=== PATIENT | male | born 1960 | race Caucasian/White ===

== ENCOUNTER 2020-08-21 07:17 | Emergency (ER) | payer OTHER, SELFPAY ==
[2020-08-21 07:53] VITALS: BP 151/97; PULSE 125; RESP 19; TEMP 36.6; O2SAT 97; BMI 29.5
[2020-08-21 08:03] VITALS: BP 151/97; PULSE 125; RESP 19; TEMP 36.6; O2SAT 97
--- NOTE | 2020-08-21 08:11 | ECG_ITS ---
Test Reason : MEDICAL CLEARANCE Blood Pressure : / mmHG Vent. Rate : 102 BPM Atrial Rate : 102 BPM P-R Int : 194 ms QRS Dur : 100 ms QT Int : 368 ms P-R-T Axes : 040 -70 052 degrees QTc Int : 479 ms Sinus tachycardia Intra-ventricular conduction delay Left anterior fascicular block Abnormal ECG When compared with ECG of 19-APR-2020 13:11, No significant change was found Referred By: Mayra Ferreira Electronically Signed By:TAYLER GARCIA MD
--- NOTE | 2020-08-21 08:27 | ED.PSYCH ---
HPI - Psych General Chief Complaint: Psychiatric Symptoms Stated Complaint: SI Time Seen by Provider: 08/21/20 08:11 Source: patient Mode of arrival: ambulatory Limitations: no limitations History of Present Illness HPI Narrative: 60-year-old male with a past medical history of depression here with feeling depressed for the last few weeks and feeling suicidal with no plan. The patient tells me he is followed by Dr. Gonzalez and has gone through ECT treatment in the past. He tells me he has both Dr. Gonzalez 2 weeks ago and his dose of acomprosate was increased. he feels like this is not helping. He does feel he may need inpatient care. He denies HI. He is feeling suicidal with no plan. He has a history of alcohol abuse and had been sober for about 8 months until yesterday when he started drinking. The patient tells me he had about 17 beers. Denies additional substance use. No physical complaints. MD complaint: suicidal ideation and feels depressed Onset (ago): week(s) Duration: constant History of same: Yes Relieving factors: none Exacerbating factors: none Context: recent alcohol abuse Associated psychiatric symptoms: depression and suicidal ideation Associated symptoms: denies other symptoms Treatments prior to arrival: none If self harm: admits thoughts of self harm Related Data Home Medications Medication Instructions Recorded Confirmed acamprosate 2 tab PO TID 08/21/20 08/21/20 aripiprazole 1 tab PO BEDTIME 08/21/20 08/21/20 bupropion HCl 3 tab PO DAILY 08/21/20 08/21/20 buspirone 1 tab PO DAILY 08/21/20 08/21/20 buspirone 2 tab PO BEDTIME 08/21/20 08/21/20 lithium carbonate 2 cap PO BID 08/21/20 08/21/20 mirtazapine 1 tab PO BEDTIME 08/21/20 08/21/20 trazodone 150 mg PO BEDTIME 08/21/20 08/21/20 Allergies Allergy/AdvReac Type Severity Reaction Status Date / Time Penicillins [PCN] Allergy Intermediate RASH/FEVER Unverified 07/12/20 14:55 penicillin V Allergy Unknown Verified 02/02/19 00:00 Review of Systems Review of Systems: Yes all other systems are reviewed and are negative Constitutional: Constitutional: Reports no additional constitutional complaints, Denies body ache(s), Denies chills, Denies fever(s), Denies headache(s) and Denies weakness Eyes: Eyes: Reports no additional eye complaints and Denies change in vision ENT: Reports system reviewed and no additional complaints, except as documented, Denies dizziness, Denies headache(s), Denies nasal congestion, Denies nasal discharge and Denies neck pain Cardiovascular: Cardiovascular: Reports no additional cardiovascular complaints, Denies chest pain, Denies leg edema and Denies dyspnea Respiratory: Respiratory: Reports no additional respiratory complaints, Denies cough and Denies dyspnea Gastrointestinal: Gastrointestinal: Reports no additional gastrointestinal complaints, Denies abdominal pain, Denies diarrhea, Denies nausea and Denies vomiting Genitourinary: Genitourinary: Denies urinary incontinence Musculoskeletal: Musculoskeletal: Reports no additional musculoskeletal complaints, Denies back pain, Denies arthralgias, Denies joint swelling, Denies neck pain, Denies numbness and Denies tingling Integumentary/Breasts: Skin/Breast: Reports system reviewed and no additional complaints, except as docu and Denies rash Neurologic: Reports system reviewed and no additional complaints, except as documented, Denies Abnormal speech present, Denies dizziness, Denies headache(s), Denies numbness, Denies tingling and Denies weakness Psychiatric: Psychiatric: Denies anxiety, Reports depression, Denies homicidal ideation and Reports suicidal ideation [facility] Past Medical History Attestation statement: The following information was validated with the patient. Source: old records reviewed and nursing notes reviewed Medical History Depression No known health problems Social History Social History Alcohol intake: current Alcohol intake frequency: 3 or more drinks per day Alcohol type: beer Smoking Status: Former smoker Smoked in Last 30 Days: No Use of substances other than those prescribed or required for medical reasons: No Advance Directives: Yes Advance Directives Information Provided: No Advance Directives on File: No Physical Exam Vital Signs: Vital Signs: Vital Signs Temp Pulse Resp BP Pulse Ox 08/21/20 08:58 98.1 F 105 H 17 142/98 H 08/21/20 08:03 97.8 F 125 H 19 151/97 H 97 08/21/20 07:53 97.8 F 125 H 19 151/97 H 97 Body Mass Index 29.5 Const: General: cooperative, healthy appearing, comfortable and no acute distress Orientation/consciousness: patient oriented x3 Limitations: no limitations HENMT: Head: Yes normal to inspection Ears: hearing grossly normal bilaterally General nose exam: Normal external nose present Face and sinus: Yes normal facial exam Mouth: Normal oral and palatal mucosa present Throat: Yes posterior oropharynx normal Eyes: General: appearance normal, both eyes and all related structures Pupils: Equal, round and reactive pupils present Neck: Neck: Yes normal visual inspection Chest: Chest palpation & inspection: normal inspection of the chest Resp: Effort & Inspection: normal respiratory effort Auscultation: clear to auscultation bilaterally Cardio: Rate: regular rate Rhythm: regular rhythm Peripheral pulses: Peripheral pulses 2+ throughout GI: Inspection: Yes normal to inspection Palpation (GI): Soft to palpation and nontender Auscultation: normal bowel sounds Back/Spine/Pelvis: Thoracic/Lumbar Spine: thoracic and lumbar spine normal to inspection Skin: General skin exam: no rashes or lesions noted Neuro: General: patient oriented x3, no focal motor deficits and normal sensation to monofilament Cranial nerves: Yes Equal, round and reactive pupils present Cognition (Neuro): normal cognition Speech: No Abnormal speech present Gait exam (Neuro): Normal gait present Motor exam (neuro): 5/5 motor strength present throughout Extrem: General: Yes normal to inspection Course Course Course Narrative: 60-year-old male here with depression and vague suicidal thoughts. No plan. No concern for acute ingestion or trauma. No physical complaints. Will check labs, drug screen, [facility] evaluation 1345-Seen by crisis and plan for re-eval in the morning, discussion with dr gonzalez. 1630-Update from [facility]. Plan for respite. Patient going from the ED to home to get clothes and medications then to respuite. Patient is agreeable to this planof care. MDM - Psych Restraints Face to Face Assessment: Face to Face Assessment: Current Situation: After assessment of the patient, a review of the pertinent medical record and a discussion with nursing staff, I feel the patient requires a restrain intervention. Reaction To: [] Medical Condition: [] Behavioral State: [] Continued Need: [] Medical Records Attestation: I reviewed the patient's medical records. Lab Data Attestation: I reviewed the patient's lab results. Result diagrams: 08/21/20 08:44 08/21/20 08:44 Labs: Lab Results 08/21/20 08/21/20 08/21/20 Range/Units 08:44 08:44 08:44 WBC 10.3 (4.8-10.8) X10*3/uL RBC 5.40 (4.60-5.80) X10*6/uL Hgb 16.6 (14.0-18.0) g/dl Hct 50.2 (42-52) % MCV 93.0 (80-98) fL MCH 30.7 (27.0-33.0) pg MCHC 33.1 (31.0-36.0) g/dl RDW 12.9 (11.0-16.0) % Plt Count 253 (160-400) X10*3/uL MPV 11.7 (9.4-12.4) fL Immature Gran % (Auto) 0.4 (0.0-0.4) % Neut % (Auto) 78.5 H (45-73) % Lymph % (Auto) 13.2 L (20-40) % Bradley % (Auto) 6.9 (2-11) % Eos % (Auto) 0.6 (0-4) % Baso % (Auto) 0.4 (0-2) % Lymph # (Auto) 1.4 (1.2-4.9) X10*3/uL Bradley # (Auto) 0.7 (0.1-1.2) X10*3/uL Eos # (Auto) 0.1 (0.0-0.4) X10*3/uL Baso # (Auto) 0.0 (0.0-0.2) X10*3/uL Abs Immat Gran (auto) 0.04 H (0.00-0.03) X10*3/uL Absolute Neuts (auto) 8.1 (2.0-8.3) X10*3/uL Absolute Nucleated RBC 0.000 (0.0-0.012) X10*3/uL Nucleated RBC % (auto) 0.0 (0.0-0.2) /100WBC Sodium 138 (135-145) mmol/L Potassium 4.6 (3.3-5.1) mmol/l Chloride 102 (96-108) mmol/L Carbon Dioxide 25 (22-29) mmol/L Anion Gap 16 (12-20) BUN 5 L (9-16) mg/dL Creatinine 1.15 (0.5-1.4) mg/dL Estim Creat Clear Calc 86.8 Estimated GFR > 60 Random Glucose 104 (60-115) mg/dL Calcium 9.4 (8.4-10.2) mg/dL Total Bilirubin 0.7 (0.0-1.0) mg/dL Direct Bilirubin 0.3 (0.0-0.5) mg/dL AST 12 (5-37) U/L ALT 11 (0-40) U/L Alkaline Phosphatase 88 (39-117) U/L Total Protein 7.5 (6.5-8.0) g/dL Albumin 4.6 (3.5-5.0) g/dL Urine Opiates Screen (Not Detect) Ur Barbiturates Screen (Not Detect) Ur Phencyclidine Scrn (Not Detect) Ur Amphetamines Screen (Not Detect) U Benzodiazepines Scrn (Not Detect) Urine Cocaine Screen (Not Detect) U Marijuana (THC) Screen (Not Detect) Ethyl Alcohol < 10 mg/dL Coronavirus (PCR) (Negative) 08/21/20 08/21/20 Range/Units 09:26 15:25 WBC (4.8-10.8) X10*3/uL RBC (4.60-5.80) X10*6/uL Hgb (14.0-18.0) g/dl Hct (42-52) % MCV (80-98) fL MCH (27.0-33.0) pg MCHC (31.0-36.0) g/dl RDW (11.0-16.0) % Plt Count (160-400) X10*3/uL MPV (9.4-12.4) fL Immature Gran % (Auto) (0.0-0.4) % Neut % (Auto) (45-73) % Lymph % (Auto) (20-40) % Bradley % (Auto) (2-11) % Eos % (Auto) (0-4) % Baso % (Auto) (0-2) % Lymph # (Auto) (1.2-4.9) X10*3/uL Bradley # (Auto) (0.1-1.2) X10*3/uL Eos # (Auto) (0.0-0.4) X10*3/uL Baso # (Auto) (0.0-0.2) X10*3/uL Abs Immat Gran (auto) (0.00-0.03) X10*3/uL Absolute Neuts (auto) (2.0-8.3) X10*3/uL Absolute Nucleated RBC (0.0-0.012) X10*3/uL Nucleated RBC % (auto) (0.0-0.2) /100WBC Sodium (135-145) mmol/L Potassium (3.3-5.1) mmol/l Chloride (96-108) mmol/L Carbon Dioxide (22-29) mmol/L Anion Gap (12-20) BUN (9-16) mg/dL Creatinine (0.5-1.4) mg/dL Estim Creat Clear Calc Estimated GFR Random Glucose (60-115) mg/dL Calcium (8.4-10.2) mg/dL Total Bilirubin (0.0-1.0) mg/dL Direct Bilirubin (0.0-0.5) mg/dL AST (5-37) U/L ALT (0-40) U/L Alkaline Phosphatase (39-117) U/L Total Protein (6.5-8.0) g/dL Albumin (3.5-5.0) g/dL Urine Opiates Screen Not Detected (Not Detect) Ur Barbiturates Screen Not Detected (Not Detect) Ur Phencyclidine Scrn Not Detected (Not Detect) Ur Amphetamines Screen Not Detected (Not Detect) U Benzodiazepines Scrn Not Detected (Not Detect) Urine Cocaine Screen Not Detected (Not Detect) U Marijuana (THC) Screen Not Detected (Not Detect) Ethyl Alcohol mg/dL Coronavirus (PCR) NEGATIVE (Negative) ECG Data Attestation: I personally reviewed and interpreted this ECG as follows: ECG interpretation date: 08/21/20 Pacemaker model: ST at rate of 102. Normal MO, Normal QRS, Normal ST segment Discharge Plan Discharge Clinical Impression: Depression Patient Disposition: Home, Self-Care Instructions: Depression (ED) Prescriptions: No Action aripiprazole 10 mg tablet 1 tab PO BEDTIME RF: 0 acamprosate 333 mg tablet,delayed release (DR/EC) 2 tab PO TID RF: 0 bupropion HCl 150 mg tablet extended release 24 hr 3 tab PO DAILY RF: 0 buspirone 15 mg tablet 1 tab PO DAILY RF: 0 buspirone 15 mg tablet 2 tab PO BEDTIME RF: 0 lithium carbonate 300 mg capsule 2 cap PO BID RF: 0 mirtazapine 45 mg tablet 1 tab PO BEDTIME RF: 0 trazodone 100 mg Tablet 150 mg PO BEDTIME RF: 0
[2020-08-21 08:51] LABS: MANUAL DIFF FLAG NO
[2020-08-21 08:53] LABS: Basophils Percent Auto 0.4 % (0-2); Eosinophils Absolute Auto 0.1 X10*3/uL (0.0-0.4); Eosinophils Percent Auto 0.6 % (0-4); Hematocrit 50.2 % (42-52); Hemoglobin 16.6 g/dl (14.0-18.0); Imm Gran Abs Auto 0.04 X10*3/uL (0.00-0.03); Imm Gran Pct Auto 0.4 % (0.0-0.4); Lymphocytes Absolute Auto 1.4 X10*3/uL (1.2-4.9); Lymphocytes Percent Auto 13.2 % (20-40); Mean Corpuscular HGB Conc 33.1 g/dl (31.0-36.0); Mean Corpuscular Hemoglobin 30.7 pg (27.0-33.0); Mean Platelet Volume 11.7 fL (9.4-12.4); Monocytes Absolute Auto 0.7 X10*3/uL (0.1-1.2); Monocytes Percent Auto 6.9 % (2-11); Neutrophils Absolute Auto 8.1 X10*3/uL (2.0-8.3); Neutrophils Percent Auto 78.5 % (45-73); Platelet Count 253 X10*3/uL (160-400); Red Cell Distribution Width 12.9 % (11.0-16.0); White Blood Count 10.3 X10*3/uL (4.8-10.8)
[2020-08-21 08:58] VITALS: BP 142/98; PULSE 105; RESP 17; TEMP 36.7
[2020-08-21 09:17] LABS: Alanine Aminotransferase 11 U/L (0-40); Albumin Level 4.6 g/dL (3.5-5.0); Alkaline Phosphatase 88 U/L (39-117); Anion Gap 16 (12-20); Aspartate Amino Transferase 12 U/L (5-37); Bilirubin Direct 0.3 mg/dL (0.0-0.5); Bilirubin Total 0.7 mg/dL (0.0-1.0); Blood Urea Nitrogen 5 mg/dL (9-16); Calcium 9.4 mg/dL (8.4-10.2); Carbon Dioxide 25 mmol/L (22-29); Chloride 102 mmol/L (96-108); Creatinine Clr Calc Pharmacy 86.8; Estimated Glomerular Filt Rate > 60; Glucose Random 104 mg/dL (60-115); Potassium 4.6 mmol/l (3.3-5.1); Sodium 138 mmol/L (135-145); Total Protein 7.5 g/dL (6.5-8.0)
[2020-08-21 09:18] LABS: Ethanol < 10 mg/dL
--- NOTE | 2020-08-21 10:31 | PC.NURSE ---
JOCELYNN faxed and called, confirmed with Di.
[2020-08-21 10:39] LABS: Amphetamine Screen Urine Not Detected (Not Detect); Barbiturates, Urine Not Detected (Not Detect); Benzodiazepines Screen Urine Not Detected (Not Detect); Cannabinoid Screen Urine Not Detected (Not Detect); Cocaine Screen Urine Not Detected (Not Detect); Opiate Screen Urine Not Detected (Not Detect); Phencyclidine Screen Urine Not Detected (Not Detect)
--- NOTE | 2020-08-21 11:19 | MHC.CARE ---
CARE team called [facility] to inquire about the status of sending an solutions developer. T/w spoke w pod this am about this and the pod was told by N (Di) that someone is on the way and then again in a follow up call made by pod at 1030 when someone is available they will come . T/w called at 1115 and spoke monique Sevilla who immediately placed t/w on hold to speak w o and m supervisor and stated we sent someone a while ago and her name is Gia . T/w called pod w this info as the [facility] employee was walking in. She will see this pt as well as the MSU on the other ED pt.
[2020-08-21 16:26] LABS: SARS COV2 PCR INHOUSE NEGATIVE (Negative)
[2020-08-21 16:36] VITALS: BP 140/85; PULSE 96; RESP 20; TEMP 36.9; O2SAT 96
== END 2020-08-21 16:45 | disposition home or self-care (01) ==
PROVIDERS: Nurse Practitioner Family; Emergency Provider Emergency Medicine
DX: F33.1 Major depressive disorder, recurrent, moderate (principal); R45.851 Suicidal ideations; Z87.891 Personal history of nicotine dependence; Z20.828 Contact with and (suspected) exposure to other viral communicable diseases; Z79.899 Other long term (current) drug therapy
CPT/HCPCS: 36415; 80048; 80076; 80307; 80320; 85025; 87635; 93005; 99284

== ENCOUNTER 2020-11-30 13:45 | Outpatient (RCR) | payer OTHER, SELFPAY ==
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
--- NOTE | 2020-09-24 23:06 | P.PNPS_ITS ---
TMS Daily Progress Note Daily TMS Progress Note Date of Service: 09/25/20 Week #: 1 Treatment #(11-24): 1 PHQ-9 Pre-Treatment (11-21): 22 PHQ-9 Most Recent (11-21): 22 Reviewed: TMS Tech Note Reviewed Verification: I have reviewed the TMS Mgmt Specialist Note and agree with the contents. The patient remains a candidate to continue TMS treatment per pro tocol.
--- NOTE | 2020-09-25 23:38 | P.PNPS_ITS ---
TMS Daily Progress Note Daily TMS Progress Note Date of Service: 09/25/20 Week #: 1 Treatment #(11-24): 2 PHQ-9 Pre-Treatment (11-21): 22 PHQ-9 Most Recent (11-21): 22 Reviewed: TMS Tech Note Reviewed Verification: I have reviewed the TMS Grinder Set Up Operator Internal Note and agree with the contents. The patient remains a candidate to continue TMS treatment per pro tocol.
--- NOTE | 2020-09-26 08:14 | P.PNPS_ITS ---
TMS Daily Progress Note Daily TMS Progress Note Date of Service: 09/26/20 Week #: 1 Treatment #(11-24): 3 PHQ-9 Pre-Treatment (-): 22 PHQ-9 Most Recent (11-21): 22 LATOSHA-7 Pre-Treatment (0-21): 9 LATOSHA-7 Most Recent (0-21): 9 CGI-I Most Recent: 4 = No Change Reviewed: TMS Tech Note Reviewed Verification: I have reviewed the TMS Animal Anatomy Teacher Note and agree with the contents. The patient remains a candidate to continue TMS treatment per protocol.
--- NOTE | 2020-09-27 16:56 | HO.TMSDAILY2 ---
TMS Daily Progress Note Daily TMS Progress Note Date of Service: 09/27/20 Week #: 1 Treatment #(11-24): 4 PHQ-9 Pre-Treatment (-): 22 PHQ-9 Most Recent (11-21): 22 LATOSHA-7 Pre-Treatment (0-21): 9 LATOSHA-7 Most Recent (0-21): 9 CGI-I Most Recent: 4 = No Change Reviewed: TMS Tech Note Reviewed Verification: I have reviewed the TMS Chief Executive Officer Note and agree with the contents. The patient remains a candidate to continue TMS treatment per protocol.
--- NOTE | 2020-09-28 16:36 | HO.TMSDAILY2 ---
TMS Daily Progress Note Daily TMS Progress Note Date of Service: 09/29/20 Week #: 1 Treatment #(11-24): 5 PHQ-9 Pre-Treatment (-): 22 PHQ-9 Most Recent (11-21): 22 LATOSHA-7 Pre-Treatment (0-21): 9 LATOSHA-7 Most Recent (0-21): 9 CGI-I Most Recent: 4 = No Change Q-LES-Q-SF Most Recent: 45 Reviewed: TMS Tech Note Reviewed Verification: I have reviewed the TMS Manufacturing Area Manager Note and agree with the contents. The patient remains a candidate to continue TMS treatment per protocol.
--- NOTE | 2020-10-01 18:49 | P.PNPS_ITS ---
TMS Daily Progress Note Daily TMS Progress Note Date of Service: 10/01/20 Week #: 2 Treatment #(-30): 6 PHQ-9 Pre-Treatment (-): 22 PHQ-9 Most Recent (11-21): 20 LATOSHA-7 Pre-Treatment (0-21): 9 LATOSHA-7 Most Recent (0-21): 14 CGI-I Most Recent: 4 = No Change Q-LES-Q-SF Most Recent: 45 Reviewed: TMS Tech Note Reviewed Verification: I have reviewed the TMS Sausage Machine Operator Note and agree with the contents. The patient remains a candidate to continue TMS treatment per protocol.
--- NOTE | 2020-10-02 20:49 | P.PNPS_ITS ---
TMS Daily Progress Note Daily TMS Progress Note Date of Service: 10/02/20 Week #: 2 Treatment #(-30): 7 PHQ-9 Pre-Treatment (-): 22 PHQ-9 Most Recent (11-21): 20 LATOSHA-7 Pre-Treatment (0-21): 9 LATOSHA-7 Most Recent (0-21): 14 CGI-I Most Recent: 4 = No Change Q-LES-Q-SF Most Recent: 45 Reviewed: TMS Tech Note Reviewed Verification: I have reviewed the TMS Powerhouse Electrician Apprentice Note and agree with the contents. The patient remains a candidate to continue TMS treatment per protocol.
--- NOTE | 2020-10-03 20:59 | P.PNPS_ITS ---
TMS Daily Progress Note Daily TMS Progress Note Date of Service: 10/03/20 Week #: 2 Treatment #(-30): 8 PHQ-9 Pre-Treatment (-): 22 PHQ-9 Most Recent (11-21): 20 LATOSHA-7 Pre-Treatment (0-21): 9 LATOSHA-7 Most Recent (0-21): 14 CGI-I Most Recent: 4 = No Change Q-LES-Q-SF Most Recent: 45 Reviewed: TMS Tech Note Reviewed Verification: I have reviewed the TMS Mainframe Applications Developer Note and agree with the contents. The patient remains a candidate to continue TMS treatment per protocol.
--- NOTE | 2020-10-05 10:54 | P.PNPS_ITS ---
TMS Daily Progress Note Daily TMS Progress Note Date of Service: 10/04/20 Week #: 2 Treatment #(-30): 9 PHQ-9 Pre-Treatment (-): 22 PHQ-9 Most Recent (11-21): 20 LATOSHA-7 Pre-Treatment (0-21): 9 LATOSHA-7 Most Recent (0-21): 14 CGI-I Most Recent: 4 = No Change Q-LES-Q-SF Most Recent: 45 Reviewed: TMS Tech Note Reviewed (Late entry for 10/04/20) Verification: I have reviewed the TMS Mechanical Development Engineer Note and agree with the contents. The patient remains a candidate to continue TMS treatment per protocol.
--- NOTE | 2020-10-05 16:16 | HO.TMSDAILY2 ---
TMS Daily Progress Note Daily TMS Progress Note Date of Service: 10/05/20 Week #: 2 Treatment #(-): 10 PHQ-9 Pre-Treatment (-): 22 PHQ-9 Most Recent (11-21): 20 LATOSHA-7 Pre-Treatment (0-21): 9 LATOSHA-7 Most Recent (0-21): 14 CGI-I Most Recent: 4 = No Change Q-LES-Q-SF Most Recent: 45 Reviewed: TMS Tech Note Reviewed Verification: I have reviewed the TMS Drama Therapist Note and agree with the contents. The patient remains a candidate to continue TMS treatment per protocol.
--- NOTE | 2020-10-08 15:15 | HO.TMSDAILY2 ---
TMS Daily Progress Note Daily TMS Progress Note Date of Service: 10/08/20 Week #: 3 Treatment #(-30): 11 PHQ-9 Pre-Treatment (1-): 22 PHQ-9 Most Recent (11-21): 19 LATOSHA-7 Pre-Treatment (0-21): 9 LATOSHA-7 Most Recent (0-21): 13 CGI-I Most Recent: 4 = No Change Q-LES-Q-SF Most Recent: 45 Reviewed: TMS Tech Note Reviewed Verification: I have reviewed the TMS Polysomnography Technologist Note and agree with the contents. The patient remains a candidate to continue TMS treatment per protocol.
--- NOTE | 2020-10-09 15:41 | P.PNPS_ITS ---
TMS Daily Progress Note Daily TMS Progress Note Date of Service: 10/09/20 Week #: 3 Treatment #(-30): 12 PHQ-9 Pre-Treatment (1-): 22 PHQ-9 Most Recent (11-21): 19 LATOSHA-7 Pre-Treatment (0-21): 9 LATOSHA-7 Most Recent (0-21): 13 CGI-I Most Recent: 4 = No Change Q-LES-Q-SF Most Recent: 45 Reviewed: TMS Tech Note Reviewed Verification: I have reviewed the TMS Hotel Guest Service Agent Note and agree with the contents. The patient remains a candidate to continue TMS treatment per protocol.
--- NOTE | 2020-10-10 15:43 | HO.TMSDAILY2 ---
TMS Daily Progress Note Daily TMS Progress Note Date of Service: 10/10/20 Week #: 3 Treatment #(-30): 13 PHQ-9 Pre-Treatment (1-): 22 PHQ-9 Most Recent (11-21): 19 LATOSHA-7 Pre-Treatment (0-21): 9 LATOSHA-7 Most Recent (0-21): 13 CGI-I Most Recent: 4 = No Change Q-LES-Q-SF Most Recent: 45 Reviewed: TMS Tech Note Reviewed Verification: I have reviewed the TMS Senior Market Research Analyst Note and agree with the contents. The patient remains a candidate to continue TMS treatment per protocol.
--- NOTE | 2020-10-12 18:20 | P.PNPS_ITS ---
TMS Daily Progress Note Daily TMS Progress Note Date of Service: 10/21/20 Week #: 3 Treatment #(-): 14 PHQ-9 Pre-Treatment (-): 22 PHQ-9 Most Recent (11-21): 19 LATOSHA-7 Pre-Treatment (0-21): 9 LATOSHA-7 Most Recent (0-21): 13 CGI-I Most Recent: 4 = No Change Q-LES-Q-SF Most Recent: 45 Reviewed: TMS Tech Note Reviewed Verification: I have reviewed the TMS Gum Rolling Machine Tender Note and agree with the contents. The patient remains a candidate to continue TMS treatment per protocol.
--- NOTE | 2020-10-15 17:52 | HO.TMSDAILY2 ---
TMS Daily Progress Note Daily TMS Progress Note Date of Service: 10/15/20 Treatment #(11-24): 13 PHQ-9 Pre-Treatment (-): 22 PHQ-9 Most Recent (11-21): 19 LATOSHA-7 Pre-Treatment (0-21): 9 LATOSHA-7 Most Recent (0-): 13 CGI-I Most Recent: 4 = No Change Q-LES-Q-SF Most Recent: 45 Verification: I have reviewed the TMS Salvage Laborer Note and agree with the contents. The patient remains a candidate to continue TMS treatment per protocol.
--- NOTE | 2020-10-18 17:58 | HO.TMSDAILY2 ---
TMS Daily Progress Note Daily TMS Progress Note Date of Service: 10/18/20 Week #: 4 Treatment #(11-24): 16 PHQ-9 Pre-Treatment (11-21): 22 PHQ-9 Most Recent (11-21): 20 CGI-I Most Recent: 4 = No Change Reviewed: TMS Tech Note Reviewed Verification: I have reviewed the TMS Mottle Lay Up Operator Note and agree with the contents. The patient remains a candidate to continue TMS treatment per protocol.
--- NOTE | 2020-10-20 00:10 | HO.PSYCHPN ---
Subjective Subjective Date of Service: 10/20/20 Reason For Visit: depression Medications Allergies Allergies Allergy/AdvReac Type Severity Reaction Status Date / Time Penicillins [PCN] Allergy Intermediate RASH/FEVER Unverified 07/12/20 14:55 penicillin V Allergy Unknown Verified 02/02/19 00:00 Assessment & Plan Greater than 50% of the session was spent on counseling and/or coordination of care
--- NOTE | 2020-10-22 23:59 | HO.TMSDAILY2 ---
TMS Daily Progress Note Daily TMS Progress Note Date of Service: 10/22/20 Treatment #(11-24): 16 PHQ-9 Pre-Treatment (11-21): 22 PHQ-9 Most Recent (11-21): 20 CGI-I Most Recent: 4 = No Change Verification: I have reviewed the TMS Side Stitcher Note and agree with the contents. The patient remains a candidate to continue TMS treatment per protocol.
--- NOTE | 2020-10-23 23:11 | HO.TMSDAILY2 ---
TMS Daily Progress Note Daily TMS Progress Note Date of Service: 10/23/20 Week #: 4 Treatment #(11-24): 18 PHQ-9 Pre-Treatment (11-21): 22 PHQ-9 Most Recent (11-21): 20 CGI-I Most Recent: 4 = No Change Reviewed: TMS Tech Note Reviewed Verification: I have reviewed the TMS Piano Builder Note and agree with the contents. The patient remains a candidate to continue TMS treatment per protocol.
--- NOTE | 2020-10-24 23:12 | HO.TMSDAILY2 ---
TMS Daily Progress Note Daily TMS Progress Note Date of Service: 10/25/20 Week #: 4 Treatment #(11-24): 19 PHQ-9 Pre-Treatment (11-21): 22 PHQ-9 Most Recent (11-21): 20 CGI-I Most Recent: 4 = No Change Reviewed: TMS Tech Note Reviewed Verification: I have reviewed the TMS Manometer Technician Note and agree with the contents. The patient remains a candidate to continue TMS treatment per protocol.
--- NOTE | 2020-10-25 23:53 | P.PNPS_ITS ---
TMS Daily Progress Note Daily TMS Progress Note Date of Service: 10/29/20 Week #: 4 Treatment #(11-24): 20 PHQ-9 Pre-Treatment (11-21): 22 PHQ-9 Most Recent (11-21): 20 CGI-I Most Recent: 4 = No Change Reviewed: TMS Tech Note Reviewed Verification: I have reviewed the TMS Communications Engineering Technician Note and agree with the contents. The patient remains a candidate to continue TMS treatment per protocol.
--- NOTE | 2020-10-29 23:51 | HO.TMSDAILY2 ---
TMS Daily Progress Note Daily TMS Progress Note Date of Service: 10/29/20 Week #: 5 Treatment #(11-24): 21 PHQ-9 Pre-Treatment (11-21): 22 PHQ-9 Most Recent (11-21): 20 CGI-I Most Recent: 4 = No Change Reviewed: TMS Tech Note Reviewed Verification: I have reviewed the TMS Manager Strategic Sourcing Note and agree with the contents. The patient remains a candidate to continue TMS treatment per protocol.
--- NOTE | 2020-10-30 23:03 | HO.TMSDAILY2 ---
TMS Daily Progress Note Daily TMS Progress Note Date of Service: 10/30/20 Week #: 5 Treatment #(11-24): 22 PHQ-9 Pre-Treatment (11-21): 22 PHQ-9 Most Recent (11-21): 20 CGI-I Most Recent: 4 = No Change Reviewed: TMS Tech Note Reviewed Verification: I have reviewed the TMS Waistline Joiner Overlock Note and agree with the contents. The patient remains a candidate to continue TMS treatment per protocol.
--- NOTE | 2020-10-31 23:27 | P.PNPS_ITS ---
TMS Daily Progress Note Daily TMS Progress Note Date of Service: 10/31/20 Week #: 5 Treatment #(11-24): 23 PHQ-9 Pre-Treatment (11-21): 22 PHQ-9 Most Recent (11-21): 20 CGI-I Most Recent: 4 = No Change Reviewed: TMS Tech Note Reviewed Verification: I have reviewed the TMS Caustic Plant Worker Note and agree with the contents. The patient remains a candidate to continue TMS treatment per protocol.
--- NOTE | 2020-11-01 17:26 | HO.TMSDAILY2 ---
TMS Daily Progress Note Daily TMS Progress Note Date of Service: 11/01/20 Week #: 5 Treatment #(11-24): 24 PHQ-9 Pre-Treatment (11-21): 22 PHQ-9 Most Recent (11-21): 20 CGI-I Most Recent: 4 = No Change Reviewed: TMS Tech Note Reviewed Verification: I have reviewed the TMS Cloth Grader Supervisor Note and agree with the contents. The patient remains a candidate to continue TMS treatment per protocol.
--- NOTE | 2020-11-02 09:39 | HO.TMSDAILY2 ---
TMS Daily Progress Note Daily TMS Progress Note Date of Service: 11/02/20 Week #: 5 Treatment #(11-24): 25 PHQ-9 Pre-Treatment (11-21): 22 PHQ-9 Most Recent (11-21): 20 CGI-I Most Recent: 4 = No Change Reviewed: TMS Tech Note Reviewed Verification: I have reviewed the TMS Marketing Database Consultant Note and agree with the contents. The patient remains a candidate to continue TMS treatment per protocol.
--- NOTE | 2020-11-05 08:10 | HO.TMSDAILY2 ---
TMS Daily Progress Note Daily TMS Progress Note Date of Service: 11/05/20 Week #: 6 Treatment #(11-24): 26 PHQ-9 Pre-Treatment (11-21): 22 PHQ-9 Most Recent (11-21): 20 CGI-I Most Recent: 4 = No Change Reviewed: TMS Tech Note Reviewed Verification: I have reviewed the TMS Reserve Operator Note and agree with the contents. The patient remains a candidate to continue TMS treatment per protocol.
--- NOTE | 2020-11-05 22:23 | HO.TMSDAILY2 ---
TMS Daily Progress Note Daily TMS Progress Note Date of Service: 11/05/20 Week #: 6 Treatment #(11-24): 26 PHQ-9 Pre-Treatment (11-21): 22 PHQ-9 Most Recent (11-21): 20 CGI-I Most Recent: 4 = No Change Reviewed: TMS Tech Note Reviewed Verification: I have reviewed the TMS Watch And Clock Maker And Repairer Note and agree with the contents. The patient remains a candidate to continue TMS treatment per protocol.
--- NOTE | 2020-11-06 23:00 | P.PNPS_ITS ---
TMS Daily Progress Note Daily TMS Progress Note Date of Service: 11/06/20 Week #: 6 Treatment #(11-24): 27 PHQ-9 Pre-Treatment (11-21): 22 PHQ-9 Most Recent (11-21): 20 CGI-I Most Recent: 4 = No Change Reviewed: TMS Tech Note Reviewed Verification: I have reviewed the TMS Application Development Project Manager Note and agree with the contents. The patient remains a candidate to continue TMS treatment per protocol.
--- NOTE | 2020-11-07 09:44 | HO.TMSDAILY2 ---
TMS Daily Progress Note Daily TMS Progress Note Date of Service: 11/07/20 Week #: 6 Treatment #(11-24): 28 PHQ-9 Pre-Treatment (11-21): 22 PHQ-9 Most Recent (11-21): 20 CGI-I Most Recent: 4 = No Change Reviewed: TMS Tech Note Reviewed Verification: I have reviewed the TMS Aircraft Engine Technician Note and agree with the contents. The patient remains a candidate to continue TMS treatment per protocol.
--- NOTE | 2020-11-08 18:29 | HO.TMSDAILY2 ---
TMS Daily Progress Note Daily TMS Progress Note Date of Service: 11/08/20 Week #: 6 Treatment #(11-24): 29 PHQ-9 Pre-Treatment (11-21): 22 PHQ-9 Most Recent (11-21): 20 CGI-I Most Recent: 4 = No Change Reviewed: TMS Tech Note Reviewed Verification: I have reviewed the TMS Notch Machine Operator Note and agree with the contents. The patient remains a candidate to continue TMS treatment per protocol.
--- NOTE | 2020-11-12 22:19 | P.PNPS_ITS ---
TMS Daily Progress Note Daily TMS Progress Note Date of Service: 11/12/20 Week #: 6 Treatment #(11-24): 30 PHQ-9 Pre-Treatment (11-21): 22 PHQ-9 Most Recent (11-21): 20 CGI-I Most Recent: 4 = No Change Reviewed: TMS Tech Note Reviewed Verification: I have reviewed the TMS Fancy Wire Drawer Note and agree with the contents. The patient remains a candidate to continue TMS treatment per protocol.
--- NOTE | 2020-11-19 22:12 | P.PNPS_ITS ---
TMS Daily Progress Note Daily TMS Progress Note Date of Service: 11/19/20 Week #: 7 Treatment #(11-24): 31 PHQ-9 Pre-Treatment (11-21): 22 PHQ-9 Most Recent (11-21): 20 CGI-I Most Recent: 4 = No Change Reviewed: TMS Tech Note Reviewed Verification: I have reviewed the TMS Strike Out Machine Operator Note and agree with the contents. The patient remains a candidate to continue TMS treatment per protocol. Discussed extended tx plan
--- NOTE | 2020-11-21 23:35 | P.PNPS_ITS ---
TMS Daily Progress Note Daily TMS Progress Note Date of Service: 11/21/20 Week #: 7 Treatment #(11-24): 32 PHQ-9 Pre-Treatment (11-21): 22 PHQ-9 Most Recent (11-21): 20 CGI-I Most Recent: 4 = No Change Reviewed: TMS Tech Note Reviewed Verification: I have reviewed the TMS Sweep Press Operator Note and agree with the contents. The patient remains a candidate to continue TMS treatment per protocol.
--- NOTE | 2020-11-30 23:16 | HO.TMSDAILY2 ---
TMS Daily Progress Note Daily TMS Progress Note Date of Service: 11/30/20 Week #: 8 Treatment #(11-24): 36 PHQ-9 Pre-Treatment (11-21): 22 PHQ-9 Most Recent (11-21): 20 CGI-I Most Recent: 4 = No Change Reviewed: TMS Tech Note Reviewed Verification: I have reviewed the TMS Clay Processing Factory Worker Note and agree with the contents. The patient remains a candidate to continue TMS treatment per protocol.
== END 2020-11-30 14:15 | disposition home or self-care (01) ==
LOC: HO.PTMS 13:45
PROVIDERS: Visit Provider Psychiatry & Neurology Psychiatry
DX: F33.2 Major depressive disorder, recurrent severe without psychotic features (principal); F43.10 Post-traumatic stress disorder, unspecified; Z72.89 Other problems related to lifestyle
CPT/HCPCS: 90867; 90868

== ENCOUNTER 2021-05-20 11:15 | Emergency (ER) | payer OTHER, MEDICARE, SELFPAY ==
[2021-05-20 11:27] VITALS: BP 170/98; PULSE 122; RESP 22; TEMP 37.2; O2SAT 95; BMI 28.8
--- NOTE | 2021-05-20 12:21 | ED_ITS ---
HPI - Psych General Chief Complaint: Psychiatric Symptoms Stated Complaint: Crisis Time Seen by Provider: 05/20/21 12:08 Source: patient Mode of arrival: ambulatory Limitations: no limitations History of Present Illness HPI Narrative: 61-year-old male who presents emergency department for evaluation of depression with suicidal ideation. The patient states that he had a bad weekend but does not want to elaborate on the details. The patient reported to the nurse that he was in custody since Thursday and had a court hearing today but felt too shaky and depressed to go to the court hearing. Patient states that he has a history of depression he states that his depression is ?out of whack . He states that he is having thoughts that he wished that he were . He states that he is questioning why he is still alive. Patient states that in the past he has tried to harm himself by drinking lots of alcohol and taking pills. He also states in the past he has considered walking into traffic. He states however at this time he does not have a clear plan but believes that he is ?close ?. The patient states that he drinks a 6 pack of beer per day but his last drink was 3 days prior. Related Data Home Medications Medication Instructions Recorded Confirmed acamprosate 2 tab PO TID 08/21/20 08/21/20 aripiprazole 1 tab PO BEDTIME 08/21/20 08/21/20 bupropion HCl 3 tab PO DAILY 08/21/20 08/21/20 buspirone 1 tab PO DAILY 08/21/20 08/21/20 buspirone 2 tab PO BEDTIME 08/21/20 08/21/20 lithium carbonate 2 cap PO BID 08/21/20 08/21/20 mirtazapine 1 tab PO BEDTIME 08/21/20 08/21/20 trazodone 150 mg PO BEDTIME 08/21/20 08/21/20 acamprosate 2 tab PO TID 09/24/20 09/24/20 Allergies Allergy/AdvReac Type Severity Reaction Status Date / Time Penicillins [PCN] Allergy Intermediate RASH/FEVER Unverified 07/12/20 14:55 penicillin V Allergy Unknown Verified 02/02/19 00:00 Review of Systems Review of Systems: Yes all other systems are reviewed and are negative PMFSH Past Medical History PMFSH Narrative: Social history: The patient denies tobacco use. He states that he drinks a six-pack of beer per day and his last drink was 3 days prior. He denies using drugs. Medical History Alcohol use disorder Depression Major depressive disorder, recurrent severe without psychotic features No known health problems Post traumatic stress disorder (PTSD) Social History Social History Alcohol intake: current Alcohol intake frequency: 3 or more drinks per day Alcohol type: beer Advance Directives: Yes Advance Directives Information Provided: Yes Advance Directives on File: No Physical Exam Vital Signs: Vital Signs: Last Vital Signs Temp 99.0 F 05/20/21 11:27 Pulse 122 H 05/20/21 11:27 Resp 22 H 05/20/21 11:27 BP 170/98 H 05/20/21 11:27 Pulse Ox 95 05/20/21 11:27 Body Mass Index 28.8 Const: General: cooperative and healthy appearing Orientation/consciousness: oriented to person and oriented to place Limitations: no limitations HENMT: Head: Yes normal to inspection, Yes normocephalic and Yes atraumatic Ears: external ears normal General nose exam: Normal external nose present Face and sinus: Yes normal facial exam Mouth: Normal oral and palatal mucosa present Throat: Yes posterior oropharynx normal Eyes: Periorbital: periorbital findings normal Eyelids: Yes eyelids normal Conjunctivae: conjunctivae normal Sclerae: sclerae normal Corneas: corneas normal Pupils: Equal, round and reactive pupils present Direct Ophthalmoscopy: normal light reflex Neck: Neck: Yes full ROM, Yes no lymphadenopathy, Yes no meningeal signs, Yes trachea midline and Yes supple Chest: Chest palpation & inspection: normal inspection of the chest and normal palpation of entire chest wall Resp: Effort & Inspection: normal respiratory effort and able to speak in complete sentences Auscultation: clear to auscultation bilaterally Cardio: Rate: regular rate Rhythm: regular rhythm Heart sounds: S1 normal heart sound present, S2 normal heart sound present and no murmurs GI: Inspection: Yes normal to inspection Palpation (GI): Soft to palpation, nontender, no guarding, not rigid and No hepatosplenomegaly present : General: Yes no CVA tenderness Back/Spine/Pelvis: Back: no CVA tenderness Cervical Spine: normal cervical lordosis Thoracic/Lumbar Spine: thoracic and lumbar spine normal to ins pection Skin: Lesions: no lesions Rashes: no rashes Wounds: no wounds Neuro: General: oriented to person, oriented to place and no meningeal signs Cranial nerves: Yes CN's II-XII intact bilaterally and Yes Equal, round and reactive pupils present Cognition (Neuro): normal cognition Motor exam (neuro): 5/5 motor strength present throughout Extrem: General: Yes normal to inspection and Yes full ROM Psych: Appearance: well kempt Mental Status: mental status grossly normal Speech and movement: Normal speech and movement present Affect: normal affect Attitude: cooperative Thought process: Normal thought process pres ent Thought content: Suicidality present, no homicidality, no delusions and Depressive thoughts present Course Course Course Narrative: 61 year old male with a history of depression PTSD and ETOH abuse presents emergency department for evaluation of suicidal ideation and increased depression secondary to events that occurred over the weekend (the patient was in custody). Patient does have a history of daily alcohol consumption and has not had any alcohol to drink and 3 days. At this time he does not appear to be in withdrawals. The patient is cooperative. I did order laboratory evaluation on the patient. The patient will be treated with Ativan 1 mg orally for anxiety. I will obtain a crisis consult for this patient as well. 1521: Laboratory evaluation revealed slight elevation in his chloride of 112 with a slightly low bicarb of 19. LFTs were normal. CBC was unremarkable. Urine tox screen was negative. Alcohol level was below detectable limits. COVID-19 test and lithium level is pending. The patient is medically cleared for crisis evaluation. The patient was given a 2nd dose of Ativan 1 mg orally. 1543: Patient was seen by our care team provider who knows this patient well. The patient was apparently picked up on a warrant which was 2 years old for assault and battery. He was kept in care home since they were unable to get a forest fire control officer until this morning. Apparently the forest fire control officer determined that the warrant had no value in cleared the warrant and the patient was dismissed from the court room. Patient then walked here to the hospital for crisis evaluation. The patient told our care team provider that he is not suicidal and would like to pursue out patient respite treatment. The patient will be discharged with instructions from the care team provider to follow-up with in and to try to get into outpatient respite. MDM - Psych Lab Data Result diagrams: 05/20/21 12:29 05/20/21 12:29 Labs: Lab Results 05/20/21 05/20/21 05/20/21 Range/Units 12:29 12:29 12:29 WBC 8.9 (4.8-10.8) X10*3/uL RBC 5.24 (4.60-5.80) X10*6/uL Hgb 15.9 (14.0-18.0) g/dl Hct 46.6 (42-52) % MCV 88.9 (80-98) fL MCH 30.3 (27.0-33.0) pg MCHC 34.1 (31.0-36.0) g/dl RDW 12.5 (11.0-16.0) % Plt Count 199 (160-400) X10*3/uL MPV 11.9 (9.4-12.4) fL Immature Gran % (Auto) 0.3 (0.0-0.4) % Neut % (Auto) 84.3 H (45-73) % Lymph % (Auto) 9.2 L (20-40) % [place] % (Auto) 5.3 (2-11) % Eos % (Auto) 0.6 (0-4) % Baso % (Auto) 0.3 (0-2) % Lymph # (Auto) 0.8 L (1.2-4.9) X10*3/uL [place] # (Auto) 0.5 (0.1-1.2) X10*3/uL Eos # (Auto) 0.1 (0.0-0.4) X10*3/uL Baso # (Auto) 0.0 (0.0-0.2) X10*3/uL Abs Immat Gran (auto) 0.03 (0.00-0.03) X10*3/uL Absolute Neuts (auto) 7.5 (2.0-8.3) X10*3/uL Absolute Nucleated RBC 0.000 (0.0-0.012) X10*3/uL Nucleated RBC % (auto) 0.0 (0.0-0.2) /100WBC Sodium 140 (135-145) mmol/L Potassium 4.0 (3.3-5.1) mmol/L Chloride 112 H (96-108) mmol/L Carbon Dioxide 19 L (22-29) mmol/L Anion Gap 13 (12-20) BUN 8 L D (9-16) mg/dL Creatinine 0.98 (0.5-1.4) mg/dL Estim Creat Clear Calc 99.6 Estimated GFR > 60 Random Glucose 105 (60-115) mg/dL Calcium 9.5 (8.4-10.2) mg/dL Total Bilirubin 0.7 (0.0-1.0) mg/dL AST 11 (5-37) U/L ALT 9 (0-40) U/L Alkaline Phosphatase 90 (39-117) U/L Total Protein 7.2 (6.5-8.0) g/dL Albumin 4.5 (3.5-5.0) g/dL Urine Opiates Screen (Not Detect) Ur Barbiturates Screen (Not Detect) Ur Phencyclidine Scrn (Not Detect) Ur Amphetamines Screen (Not Detect) U Benzodiazepines Scrn (Not Detect) [place] (0.60-1.20) mmol/L Urine Cocaine Screen (Not Detect) U Marijuana (THC) Screen (Not Detect) Ethyl Alcohol < 10 mg/dL 05/20/21 05/20/21 Range/Units 12:29 14:22 WBC (4.8-10.8) X10*3/uL RBC (4.60-5.80) X10*6/uL Hgb (14.0-18.0) g/dl Hct (42-52) % MCV (80-98) fL MCH (27.0-33.0) pg MCHC (31.0-36.0) g/dl RDW (11.0-16.0) % Plt Count (160-400) X10*3/uL MPV (9.4-12.4) fL Immature Gran % (Auto) (0.0-0.4) % Neut % (Auto) (45-73) % Lymph % (Auto) (20-40) % [place] % (Auto) (2-11) % Eos % (Auto) (0-4) % Baso % (Auto) (0-2) % Lymph # (Auto) (1.2-4.9) X10*3/uL [place] # (Auto) (0.1-1.2) X10*3/uL Eos # (Auto) (0.0-0.4) X10*3/uL Baso # (Auto) (0.0-0.2) X10*3/uL Abs Immat Gran (auto) (0.00-0.03) X10*3/uL Absolute Neuts (auto) (2.0-8.3) X10*3/uL Absolute Nucleated RBC (0.0-0.012) X10*3/uL Nucleated RBC % (auto) (0.0-0.2) /100WBC Sodium (135-145) mmol/L Potassium (3.3-5.1) mmol/L Chloride (96-108) mmol/L Carbon Dioxide (22-29) mmol/L Anion Gap (12-20) BUN (9-16) mg/dL Creatinine (0.5-1.4) mg/dL Estim Creat Clear Calc Estimated GFR Random Glucose (60-115) mg/dL Calcium (8.4-10.2) mg/dL Total Bilirubin (0.0-1.0) mg/dL AST (5-37) U/L ALT (0-40) U/L Alkaline Phosphatase (39-117) U/L Total Protein (6.5-8.0) g/dL Albumin (3.5-5.0) g/dL Urine Opiates Screen Not Detected (Not Detect) Ur Barbiturates Screen Not Detected (Not Detect) Ur Phencyclidine Scrn Not Detected (Not Detect) Ur Amphetamines Screen Not Detected (Not Detect) U Benzodiazepines Scrn Not Detected (Not Detect) [place] 0.91 (0.60-1.20) mmol/L Urine Cocaine Screen Not Detected (Not Detect) U Marijuana (THC) Screen Not Detected (Not Detect) Ethyl Alcohol mg/dL Discharge Plan Discharge Clinical Impression: Anxiety Depression Qualifiers: Major depression recurrence: recurrent Major depression episode severity: moderate Patient Disposition: Home, Self-Care Instructions: Depression (ED) Additional Instructions: Follow the care team providers instructions for getting into respite and for following up with [facility]. Please return to the emergency department if your symptoms get worse or if you develop any symptoms that are concerning to you. Prescriptions: No Action aripiprazole 10 mg tablet 1 tab PO BEDTIME RF: 0 acamprosate 333 mg tablet,delayed release (DR/EC) 2 tab PO TID RF: 0 bupropion HCl 150 mg tablet extended release 24 hr 3 tab PO DAILY RF: 0 buspirone 15 mg tablet 1 tab PO DAILY RF: 0 buspirone 15 mg tablet 2 tab PO BEDTIME RF: 0 lithium carbonate 300 mg capsule 2 cap PO BID RF: 0 mirtazapine 45 mg tablet 1 tab PO BEDTIME RF: 0 trazodone 100 mg Tablet 150 mg PO BEDTIME RF: 0 acamprosate 333 mg tablet,delayed release (DR/EC) 2 tab PO TID RF: 0
[2021-05-20 12:32] LABS: MANUAL DIFF FLAG NO
[2021-05-20 12:34] LABS: Basophils Percent Auto 0.3 % (0-2); Eosinophils Absolute Auto 0.1 X10*3/uL (0.0-0.4); Eosinophils Percent Auto 0.6 % (0-4); Hematocrit 46.6 % (42-52); Hemoglobin 15.9 g/dl (14.0-18.0); Imm Gran Abs Auto 0.03 X10*3/uL (0.00-0.03); Imm Gran Pct Auto 0.3 % (0.0-0.4); Lymphocytes Absolute Auto 0.8 X10*3/uL (1.2-4.9); Lymphocytes Percent Auto 9.2 % (20-40); Mean Corpuscular HGB Conc 34.1 g/dl (31.0-36.0); Mean Corpuscular Hemoglobin 30.3 pg (27.0-33.0); Mean Corpuscular Volume 88.9 fL (80-98); Mean Platelet Volume 11.9 fL (9.4-12.4); Monocytes Absolute Auto 0.5 X10*3/uL (0.1-1.2); Monocytes Percent Auto 5.3 % (2-11); Neutrophils Absolute Auto 7.5 X10*3/uL (2.0-8.3); Neutrophils Percent Auto 84.3 % (45-73); Platelet Count 199 X10*3/uL (160-400); Red Blood Count 5.24 X10*6/uL (4.60-5.80); Red Cell Distribution Width 12.5 % (11.0-16.0); White Blood Count 8.9 X10*3/uL (4.8-10.8)
[2021-05-20] MEDS: LORazepam 1 MG TABLET PO (12:39)
[2021-05-20 13:04] LABS: Ethanol < 10 mg/dL
[2021-05-20 13:07] LABS: Alanine Aminotransferase 9 U/L (0-40); Albumin Level 4.5 g/dL (3.5-5.0); Alkaline Phosphatase 90 U/L (39-117); Anion Gap 13 (12-20); Aspartate Amino Transferase 11 U/L (5-37); Bilirubin Total 0.7 mg/dL (0.0-1.0); Blood Urea Nitrogen 8 mg/dL (9-16); Calcium 9.5 mg/dL (8.4-10.2); Carbon Dioxide 19 mmol/L (22-29); Chloride 112 mmol/L (96-108); Creatinine Clr Calc Pharmacy 99.6; Estimated Glomerular Filt Rate > 60; Glucose Random 105 mg/dL (60-115); Sodium 140 mmol/L (135-145); Total Protein 7.2 g/dL (6.5-8.0)
--- NOTE | 2021-05-20 13:31 | PC.NURSE ---
Sent consult info for patient to [facility].
[2021-05-20 15:01] LABS: Amphetamine Screen Urine Not Detected (Not Detect); Barbiturates, Urine Not Detected (Not Detect); Benzodiazepines Screen Urine Not Detected (Not Detect); Cannabinoid Screen Urine Not Detected (Not Detect); Cocaine Screen Urine Not Detected (Not Detect); Opiate Screen Urine Not Detected (Not Detect); Phencyclidine Screen Urine Not Detected (Not Detect)
[2021-05-20 15:33] LABS: Lithium 0.91 mmol/L (0.60-1.20)
[2021-05-20 15:56] LABS: COVID-19 Test Negative (Negative)
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
== END 2021-05-20 16:15 | disposition home or self-care (01) ==
PROVIDERS: Emergency Provider Emergency Medicine Emergency Medical Services
DX: F41.9 Anxiety disorder, unspecified (principal); F33.1 Major depressive disorder, recurrent, moderate; R45.851 Suicidal ideations; F43.10 Post-traumatic stress disorder, unspecified; F10.10 Alcohol abuse, uncomplicated; Y90.0 Blood alcohol level of less than 20 mg/100 ml; Z20.822 Contact with and (suspected) exposure to COVID-19; Z79.899 Other long term (current) drug therapy
CPT/HCPCS: 36415; 80053; 80178; 80307; 82077; 85025; 87635; 99283

== ENCOUNTER 2021-12-10 06:20 | Emergency (ER) | payer OTHER, MEDICARE, SELFPAY ==
[2021-12-10 06:22] VITALS: BP 188/106; PULSE 96; RESP 20; TEMP 36.6; O2SAT 95; BMI 29.5
--- NOTE | 2021-12-10 06:37 | ECG_ITS ---
Test Reason : OVERDOSE Blood Pressure : / mmHG Vent. Rate : 086 BPM Atrial Rate : 086 BPM P-R Int : 194 ms QRS Dur : 108 ms QT Int : 382 ms P-R-T Axes : 051 -57 052 degrees QTc Int : 457 ms Normal sinus rhythm Left anterior fascicular block Minimal voltage criteria for LVH, may be normal variant ( [place] product ) Septal infarct , age undetermined Abnormal ECG When compared with ECG of 21-AUG-2020 08:32, No significant change was found Referred By: Angie Rust Electronically Signed By:LISSETTE TRUJILLO MD
--- NOTE | 2021-12-10 06:42 | ED.PSYCH ---
HPI - Psych General Chief Complaint: Psychiatric Symptoms Stated Complaint: homicidal Time Seen by Provider: 12/10/21 06:36 Source: patient Mode of arrival: ambulatory Limitations: no limitations History of Present Illness MD complaint: suicidal ideation and feels depressed Onset (ago): day(s) (1) Duration: constant History of same: Yes Relieving factors: none Exacerbating factors: none Context: recent alcohol abuse (drank yesterday) Associated psychiatric symptoms: depression Associated symptoms: denies other symptoms Treatments prior to arrival: none If self harm: admits thoughts of self harm, has plan and has acted on plan (drank etoh last night and took a handfyl of tylenol PM around midnight to harm himself) Related Data Home Medications Medication Instructions Recorded Confirmed acamprosate 333 mg tablet,delayed 2 tab PO TID 08/21/20 08/21/20 release aripiprazole 10 mg tablet 1 tab PO BEDTIME 08/21/20 08/21/20 bupropion HCl 150 mg 24 hr tablet, 3 tab PO DAILY 08/21/20 08/21/20 extended release buspirone 15 mg tablet 1 tab PO DAILY 08/21/20 08/21/20 buspirone 15 mg tablet 2 tab PO BEDTIME 08/21/20 08/21/20 lithium carbonate 300 mg capsule 2 cap PO BID 08/21/20 08/21/20 mirtazapine 45 mg tablet 1 tab PO BEDTIME 08/21/20 08/21/20 trazodone 100 mg tablet 150 mg PO BEDTIME 08/21/20 08/21/20 acamprosate 333 mg tablet,delayed 2 tab PO TID 09/24/20 09/24/20 release Allergies Allergy/AdvReac Type Severity Reaction Status Date / Time Penicillins [PCN] Allergy Intermediate RASH/FEVER Unverified 07/12/20 14:55 penicillin V Allergy Unknown Verified 02/02/19 00:00 Review of Systems Review of Systems: Constitutional : No Fever, No Chills ENT/Mouth : No Ear Pain, No Nasal Congestion, No sore throat Eyes: No Eye Pain, No Swelling, No Redness Cardiovascular : No Chest Pain, No SOB Respiratory : No Cough, No Sputum, No Dyspnea Gastrointestinal : No Nausea, No Vomiting, No Diarrhea, No Hematochezia, No Melena Genitourinary : No Dysuria, No Urinary Frequency, No Hematuria Musculoskeletal : No Myalgias Skin : No Skin Lesions, No rash Neuro : No Weakness, No Numbness, No Paresthesias, No Dizziness, No Headache Psych : positive Anxiety, positive Depression, positive SI Heme/Lymph: No Lymphadenopathy Endocrine : No Polyuria, No Polydipsia All other systems reviewed and are negative [facility] Past Medical History Attestation statement: The following information was validated with the patient. Medical History Alcohol use disorder Depression Major depressive disorder, recurrent severe without psychotic features No known health problems Post traumatic stress disorder (PTSD) Social History Social History (Updated 12/10/21 @ 06:51 by Angie Rust DO) Alcohol intake: current Alcohol intake frequency: 3 or more drinks per day Alcohol type: beer Patient Tobacco Use Status: Tobacco use Unknown Advance Directives: No Advance Directives Information Provided: Yes Physical Exam Vital Signs: Vital Signs: Last Vital Signs Temp 97.9 F 12/10/21 06:22 Pulse 96 12/10/21 06:22 Resp 18 12/10/21 14:15 BP 140/93 H 12/10/21 14:15 Pulse Ox 94 12/10/21 14:15 BMI result Body Mass Index 29.5 Appearance: Alert. Oriented X3. No acute distress. Flat affect, withdrawn Eyes: Pupils equal, round and reactive to light. ENT: Pharynx normal. Neck: Normal inspection. Neck supple. CVS: Normal heart rate and rhythm. Pulses normal. Respiratory: No respiratory distress. Breath sounds normal. Abdomen: Soft and non-tender. Skin: Skin warm and dry. Normal skin color. Normal skin turgor. Extremities: No lower extremity edema. No calf ttp Neuro: Oriented X 3. No motor deficit. No sensory deficit. CN 2-12 intact, steady gait Course Course Course Narrative: alcohol and tylenol negative - medically cleared at this time Physician observation started at 753am. Patient placed in physician observation because the patient needed more time for N to evaluate the need for psych admission. At the time observation was started the patient's vitals were stable, patient is alert and oriented but slightly anxious, Neuro: nonfocal, CV RRR, Lungs clear Physician observation ended at 246pm. Patient seen and cleared by crisis. Plan is to follow up with [facility] as outpatient and respite tomorrow. NAD, lungs clear, CV RRR, Abd nontender, Neuro intact. Disposition is for home. patient clearly did not drink or take tylenol no signs of withdrawal. he feels safe for DC MDM - Psych MDM Narrative Medical decision making narrative: 61 yo male with hx of PTSD, ETOH abuse and depression who reports drinking last night then taking a handful of tylenol PM to harm himself at this time will obtain basic labs, tylenol level - attempt to medically clear him and if possible refer to [facility] given his attempt. Dispo per results and workup. Lab Data Result diagrams: 12/10/21 07:17 12/10/21 07:17 Labs: Lab Results 12/10/21 12/10/21 12/10/21 Range/Units 06:31 07:17 07:17 WBC 6.7 (4.8-10.8) X10*3/uL RBC 5.58 (4.60-5.80) X10*6/uL Hgb 15.7 (14.0-18.0) g/dl Hct 47.7 (42.0-52.0) % MCV 85.5 (80.0-98.0) fL MCH 28.1 (27.0-33.0) pg MCHC 32.9 (31.0-36.0) g/dl RDW 14.0 (11.0-16.0) % Plt Count 220 (160-400) X10*3/uL MPV 11.8 (9.4-12.4) fL Immature Gran % (Auto) 0.4 (0.0-0.4) % Neut % (Auto) 74.8 H (45-73) % Lymph % (Auto) 18.2 L (20-40) % [place] % (Auto) 5.5 (2-11) % Eos % (Auto) 0.7 (0-4) % Baso % (Auto) 0.4 (0-2) % Lymph # (Auto) 1.2 (1.2-4.9) X10*3/uL [place] # (Auto) 0.4 (0.1-1.2) X10*3/uL Eos # (Auto) 0.1 (0.0-0.4) X10*3/uL Baso # (Auto) 0.0 (0.0-0.2) X10*3/uL Abs Immat Gran (auto) 0.03 (0.00-0.03) X10*3/uL Absolute Neuts (auto) 5.0 (2.0-8.3) x10*3/uL Absolute Nucleated RBC 0.000 (0.0-0.012) X10*3/uL Nucleated RBC % (auto) 0.0 (0.0-0.2) /100WBC PT 11.5 (9.9-13.0) SEC INR 1.0 (0.9-1.1) VBG pH (7.32-7.43) VBG pCO2 mmHg VBG pO2 mmHg VBG HCO3 (22-26) mmol/L VBG O2 Saturation % VBG Base Excess mmol/L Sodium (135-145) mmol/L Potassium (3.3-5.1) mmol/L Chloride (96-108) mmol/L Carbon Dioxide (22-29) mmol/L Anion Gap (12-20) BUN (9-16) mg/dL Creatinine (0.5-1.4) mg/dL Estim Creat Clear Calc Estimated GFR Random Glucose (60-115) mg/dL Calcium (8.4-10.2) mg/dL Magnesium (1.6-2.6) mg/dL Total Bilirubin (0.0-1.0) mg/dL Direct Bilirubin (0.0-0.5) mg/dL AST (5-37) U/L ALT (0-40) U/L Alkaline Phosphatase (39-117) U/L Total Protein (6.5-8.0) g/dL Albumin (3.5-5.0) g/dL Salicylates (15-30) mg/dL Urine Opiates Screen (Not Detect) Urine Fentanyl Screen (Not Detect) Acetaminophen (<30) mcg/mL Ur Barbiturates Screen (Not Detect) Ur Phencyclidine Scrn (Not Detect) Ur Amphetamines Screen (Not Detect) U Benzodiazepines Scrn (Not Detect) [place] (0.60-1.20) mmol/L Urine Cocaine Screen (Not Detect) U Marijuana (THC) Screen (Not Detect) Ethyl Alcohol mg/dL COVID-19 (ROMY) Negative (Negative) COVID-19 Clin Com See Note 12/10/21 12/10/21 12/10/21 Range/Units 07:17 07:17 07:17 WBC (4.8-10.8) X10*3/uL RBC (4.60-5.80) X10*6/uL Hgb (14.0-18.0) g/dl Hct (42.0-52.0) % MCV (80.0-98.0) fL MCH (27.0-33.0) pg MCHC (31.0-36.0) g/dl RDW (11.0-16.0) % Plt Count (160-400) X10*3/uL MPV (9.4-12.4) fL Immature Gran % (Auto) (0.0-0.4) % Neut % (Auto) (45-73) % Lymph % (Auto) (20-40) % [place] % (Auto) (2-11) % Eos % (Auto) (0-4) % Baso % (Auto) (0-2) % Lymph # (Auto) (1.2-4.9) X10*3/uL [place] # (Auto) (0.1-1.2) X10*3/uL Eos # (Auto) (0.0-0.4) X10*3/uL Baso # (Auto) (0.0-0.2) X10*3/uL Abs Immat Gran (auto) (0.00-0.03) X10*3/uL Absolute Neuts (auto) (2.0-8.3) x10*3/uL Absolute Nucleated RBC (0.0-0.012) X10*3/uL Nucleated RBC % (auto) (0.0-0.2) /100WBC PT (9.9-13.0) SEC INR (0.9-1.1) VBG pH (7.32-7.43) VBG pCO2 mmHg VBG pO2 mmHg VBG HCO3 (22-26) mmol/L VBG O2 Saturation % VBG Base Excess mmol/L Sodium 138 (135-145) mmol/L Potassium 4.4 (3.3-5.1) mmol/L Chloride 105 (96-108) mmol/L Carbon Dioxide 24 (22-29) mmol/L Anion Gap 13 (12-20) BUN 5 L (9-16) mg/dL Creatinine 0.83 (0.5-1.4) mg/dL Estim Creat Clear Calc 118.8 Estimated GFR > 60 Random Glucose 113 (60-115) mg/dL Calcium 9.4 (8.4-10.2) mg/dL Magnesium 1.9 (1.6-2.6) mg/dL Total Bilirubin 0.5 (0.0-1.0) mg/dL Direct Bilirubin 0.2 (0.0-0.5) mg/dL AST 10 (5-37) U/L ALT 10 (0-40) U/L Alkaline Phosphatase 85 (39-117) U/L Total Protein 7.1 (6.5-8.0) g/dL Albumin 4.3 (3.5-5.0) g/dL Salicylates < 5.0 L (15-30) mg/dL Urine Opiates Screen (Not Detect) Urine Fentanyl Screen (Not Detect) Acetaminophen < 1 (<30) mcg/mL Ur Barbiturates Screen (Not Detect) Ur Phencyclidine Scrn (Not Detect) Ur Amphetamines Screen (Not Detect) U Benzodiazepines Scrn (Not Detect) [place] 0.17 L (0.60-1.20) mmol/L Urine Cocaine Screen (Not Detect) U Marijuana (THC) Screen (Not Detect) Ethyl Alcohol < 10 mg/dL COVID-19 (ROMY) (Negative) COVID-19 Clin Com 12/10/21 12/10/21 Range/Units 07:17 07:19 WBC (4.8-10.8) X10*3/uL RBC (4.60-5.80) X10*6/uL Hgb (14.0-18.0) g/dl Hct (42.0-52.0) % MCV (80.0-98.0) fL MCH (27.0-33.0) pg MCHC (31.0-36.0) g/dl RDW (11.0-16.0) % Plt Count (160-400) X10*3/uL MPV (9.4-12.4) fL Immature Gran % (Auto) (0.0-0.4) % Neut % (Auto) (45-73) % Lymph % (Auto) (20-40) % [place] % (Auto) (2-11) % Eos % (Auto) (0-4) % Baso % (Auto) (0-2) % Lymph # (Auto) (1.2-4.9) X10*3/uL [place] # (Auto) (0.1-1.2) X10*3/uL Eos # (Auto) (0.0-0.4) X10*3/uL Baso # (Auto) (0.0-0.2) X10*3/uL Abs Immat Gran (auto) (0.00-0.03) X10*3/uL Absolute Neuts (auto) (2.0-8.3) x10*3/uL Absolute Nucleated RBC (0.0-0.012) X10*3/uL Nucleated RBC % (auto) (0.0-0.2) /100WBC PT (9.9-13.0) SEC INR (0.9-1.1) VBG pH 7.39 (7.32-7.43) VBG pCO2 34 mmHg VBG pO2 65 mmHg VBG HCO3 21 L (22-26) mmol/L VBG O2 Saturation 91.0 % VBG Base Excess -2.7 mmol/L Sodium (135-145) mmol/L Potassium (3.3-5.1) mmol/L Chloride (96-108) mmol/L Carbon Dioxide (22-29) mmol/L Anion Gap (12-20) BUN (9-16) mg/dL Creatinine (0.5-1.4) mg/dL Estim Creat Clear Calc Estimated GFR Random Glucose (60-115) mg/dL Calcium (8.4-10.2) mg/dL Magnesium (1.6-2.6) mg/dL Total Bilirubin (0.0-1.0) mg/dL Direct Bilirubin (0.0-0.5) mg/dL AST (5-37) U/L ALT (0-40) U/L Alkaline Phosphatase (39-117) U/L Total Protein (6.5-8.0) g/dL Albumin (3.5-5.0) g/dL Salicylates (15-30) mg/dL Urine Opiates Screen Not Detected (Not Detect) Urine Fentanyl Screen Not Detected (Not Detect) Acetaminophen (<30) mcg/mL Ur Barbiturates Screen Not Detected (Not Detect) Ur Phencyclidine Scrn Not Detected (Not Detect) Ur Amphetamines Screen Not Detected (Not Detect) U Benzodiazepines Scrn Not Detected (Not Detect) [place] (0.60-1.20) mmol/L Urine Cocaine Screen Not Detected (Not Detect) U Marijuana (THC) Screen Not Detected (Not Detect) Ethyl Alcohol mg/dL COVID-19 (ROMY) (Negative) COVID-19 Clin Com ECG Data Attestation: I personally reviewed and interpreted this ECG as follows: ECG interpretation date: 12/10/21 ECG interpretation time: 07:08 Interpretation: Rate: 86 Rhythm: NSR [place]: left , LVH Normal P waves. Normal KAVON. NSIVCD ST T wave : normal qTC: normal prior studies: no acute ischemia The study has been interpreted contemporaneously by me. . Discharge Plan Discharge Clinical Impression: Depression Qualifiers: Depression Type: other depression Qualified Code(s): F32.89 - Other specified depressive episodes Patient Disposition: Home, Self-Care Instructions: Depression (ED) Additional Instructions: return to ED for any worsening symptoms or concerns please follow up with [facility] tomorrow for respite do not drink tonight Prescriptions: No Action aripiprazole 10 mg tablet 1 tab PO BEDTIME 0RF acamprosate 333 mg tablet,delayed release (DR/EC) 2 tab PO TID 0RF bupropion HCl 150 mg tablet extended release 24 hr 3 tab PO DAILY 0RF buspirone 15 mg tablet 1 tab PO DAILY 0RF buspirone 15 mg tablet 2 tab PO BEDTIME 0RF lithium carbonate 300 mg capsule 2 cap PO BID 0RF mirtazapine 45 mg tablet 1 tab PO BEDTIME 0RF trazodone 100 mg Tablet 150 mg PO BEDTIME 0RF acamprosate 333 mg tablet,delayed release (DR/EC) 2 tab PO TID 0RF
[2021-12-10 06:59] LABS: COVID-19 Test Negative (Negative); IDNOW Serial# 08D9AD1C
[2021-12-10 07:23] LABS: MANUAL DIFF FLAG NO
[2021-12-10 07:24] LABS: Venous Blood Gas Refer to POC result
[2021-12-10 07:25] LABS: Basophils Percent Auto 0.4 % (0-2); Eosinophils Absolute Auto 0.1 X10*3/uL (0.0-0.4); Eosinophils Percent Auto 0.7 % (0-4); Hematocrit 47.7 % (42.0-52.0); Hemoglobin 15.7 g/dl (14.0-18.0); Imm Gran Abs Auto 0.03 X10*3/uL (0.00-0.03); Imm Gran Pct Auto 0.4 % (0.0-0.4); Lymphocytes Absolute Auto 1.2 X10*3/uL (1.2-4.9); Lymphocytes Percent Auto 18.2 % (20-40); Mean Corpuscular HGB Conc 32.9 g/dl (31.0-36.0); Mean Corpuscular Hemoglobin 28.1 pg (27.0-33.0); Mean Corpuscular Volume 85.5 fL (80.0-98.0); Mean Platelet Volume 11.8 fL (9.4-12.4); Monocytes Absolute Auto 0.4 X10*3/uL (0.1-1.2); Monocytes Percent Auto 5.5 % (2-11); Neutrophils Percent Auto 74.8 % (45-73); Platelet Count 220 X10*3/uL (160-400); Red Blood Count 5.58 X10*6/uL (4.60-5.80); White Blood Count 6.7 X10*3/uL (4.8-10.8)
[2021-12-10 07:26] LABS: VBG Base Excess -2.7 mmol/L; VBG HCO3 21 mmol/L (22-26); VBG pCO2 34 mmHg; VBG pH 7.39 (7.32-7.43); VBG pO2 65 mmHg
[2021-12-10 07:30] LABS: Prothrombin Time 11.5 SEC (9.9-13.0)
[2021-12-10 07:37] LABS: Lithium 0.17 mmol/L (0.60-1.20)
[2021-12-10 07:39] LABS: Amphetamine Screen Urine Not Detected (Not Detect); Barbiturates, Urine Not Detected (Not Detect); Benzodiazepines Screen Urine Not Detected (Not Detect); Cannabinoid Screen Urine Not Detected (Not Detect); Cocaine Screen Urine Not Detected (Not Detect); Fentanyl, urine Not Detected (Not Detect); Opiate Screen Urine Not Detected (Not Detect); Phencyclidine Screen Urine Not Detected (Not Detect)
[2021-12-10 07:41] LABS: Ethanol < 10 mg/dL
[2021-12-10 07:47] LABS: Acetaminophen LAB < 1 mcg/mL (<30); Alanine Aminotransferase 10 U/L (0-40); Albumin Level 4.3 g/dL (3.5-5.0); Alkaline Phosphatase 85 U/L (39-117); Anion Gap 13 (12-20); Aspartate Amino Transferase 10 U/L (5-37); Bilirubin Direct 0.2 mg/dL (0.0-0.5); Bilirubin Total 0.5 mg/dL (0.0-1.0); Blood Urea Nitrogen 5 mg/dL (9-16); Calcium 9.4 mg/dL (8.4-10.2); Carbon Dioxide 24 mmol/L (22-29); Chloride 105 mmol/L (96-108); Creatinine Clr Calc Pharmacy 118.8; Estimated Glomerular Filt Rate > 60; Glucose Random 113 mg/dL (60-115); Magnesium 1.9 mg/dL (1.6-2.6); Potassium 4.4 mmol/L (3.3-5.1); Salicylate < 5.0 mg/dL (15-30); Sodium 138 mmol/L (135-145); Total Protein 7.1 g/dL (6.5-8.0)
--- NOTE | 2021-12-10 10:14 | PC.NURSE ---
smart sheet completed for [facility]
[2021-12-10] MEDS: LORazepam 1 MG TABLET PO (10:59)
[2021-12-10 14:15] VITALS: BP 140/93; RESP 18; O2SAT 94
== END 2021-12-10 15:49 | disposition home or self-care (01) ==
PROVIDERS: Emergency Provider Emergency Medicine
DX: F33.1 Major depressive disorder, recurrent, moderate (principal); R45.850 Homicidal ideations; F10.10 Alcohol abuse, uncomplicated; Y90.9 Presence of alcohol in blood, level not specified; Z20.822 Contact with and (suspected) exposure to COVID-19; Z79.899 Other long term (current) drug therapy
CPT/HCPCS: 36415; 80048; 80076; 80143; 80178; 80179; 80307; 82077; 82803; 83735; 85025; 85610; 87635; 93005; 99285